=== PATIENT | female | born 1945 | race Caucasian/White ===

== ENCOUNTER 2018-09-30 08:22 | Day surgery (SDC) | payer MEDICARE, BC ==
[2018-09-30] MEDS ORDERED: Midazolam 1 MG/ML 2 ML SDV ONE (08:50)
[2018-09-30] MEDS ORDERED: Propofol 200 MG/20 ML SDV ONE ×2 (08:50→10:44)
[2018-09-30] MEDS ORDERED: fentaNYL 100 MCG/2 ML SDV ONE (08:50)
[2018-09-30] MEDS ORDERED: Lactated Ringers 1,000 ML IV SCH (09:00)
--- NOTE | 2018-10-01 08:17 | OR ---
DATE OF PROCEDURE: 09/30/2018 PREOPERATIVE DIAGNOSIS: Cancer screening. POSTOPERATIVE DIAGNOSIS: Diverticulosis. PROCEDURE PERFORMED: Colonoscopy to the cecum. SURGEON: Jonah Bhat MD ANESTHESIA: IV anesthesia with monitored anesthesia care. INDICATION: This 73-year-old white female is referred for a colonoscopy for colon cancer screening. She says her last colonoscopic exam was done 10 years ago. I counseled her for the procedure, including risks and alternatives, and she gave her informed consent to proceed. DESCRIPTION OF PROCEDURE: The patient was placed in the left lateral decubitus position. IV anesthesia was administered by the Anesthesia Service. Time-out was held. A rectal exam was performed, which was unremarkable. The flexible video Olympus colonoscope was introduced through her anus, up her rectum, and out her colon all the way to the cecum. En route, we saw a single, very small diverticulum. There was no bleeding or inflammation associated with it. To reach the cecum, we had to apply abdominal compression with the patient both in the left lateral and supine positions. Once the cecum was reached, the scope was slowly withdrawn examining the mucosa throughout. No additional mucosal abnormalities were noted. The scope was retroflexed in the rectum with the distal rectum appearing unremarkable. The scope was straightened and removed. She tolerated the procedure well. Jonah Bhat MD /[id number]
== END 2018-09-30 12:15 | disposition home or self-care (01) ==
LOC: JP.SDS 08:22
PROVIDERS: ATTEND Surgery
DX: Z12.11 Encounter for screening for malignant neoplasm of colon (principal); K57.30 Diverticulosis of large intestine without perforation or abscess without bleeding; K21.9 Gastro-esophageal reflux disease without esophagitis; E11.9 Type 2 diabetes mellitus without complications; N26.1 Atrophy of kidney (terminal); E66.9 Obesity, unspecified; Z68.35 Body mass index [BMI] 35.0-35.9, adult; Z91.09 Other allergy status, other than to drugs and biological substances
CPT/HCPCS: G0121; J2250; J2704; J3010; J7120

== ENCOUNTER 2023-09-05 17:45 | Emergency (ER) | payer MEDICARE, BC | END 2023-09-05 21:47 | disposition home or self-care (01) | LOC: JP.ED 17:45 | DX: S52.572A Other intraarticular fracture of lower end of left radius, initial encounter for closed fracture (principal); K21.9 Gastro-esophageal reflux disease without esophagitis; E11.9 Type 2 diabetes mellitus without complications; Z90.710 Acquired absence of both cervix and uterus; Z91.041 Radiographic dye allergy status; Z79.899 Other long term (current) drug therapy; W01.198A Fall on same level from slipping, tripping and stumbling with subsequent striking against other object, initial encounter | CPT/HCPCS: 73090-26-LT; 73090-LT; 99283 ==